=== PATIENT | female | born 1990 | race Caucasian/White ===

== ENCOUNTER → 2017-12-18 | Outpatient (CLI) | payer OTHER | LOC: COL.RAD 12-10 09:00 | DX: N30.20 Other chronic cystitis without hematuria (principal) | CPT/HCPCS: Q9967 ==

== ENCOUNTER 2020-03-25 23:21 | Emergency (ER) | payer OTHER ==
[~2020-03-25] VITALS: Ht 160 cm; Wt 62.3 kg
[2020-03-26 00:26] LABS: COLLECTION METHOD CLEAN CATCH
[2020-03-26 00:32] LABS: MUCOUS Present /lpf; PH 7 (5-8); SQUAMOUS EPITHELIAL 0-2 /hpf; URINE APPEARANCE Clear; URINE BACTERIA Rare /hpf; URINE BILIRUBIN Negative (NEGATIVE); URINE BLOOD Negative (NEGATIVE); URINE COLOR Yellow; URINE GLUCOSE Negative (NEGATIVE); URINE KETONE Negative (NEGATIVE); URINE LEUKOCYTE ESTERASE Negative (NEGATIVE); URINE NITRATE Negative (NEGATIVE); URINE PROTEIN(semi-quant) Negative (NEGATIVE); URINE RBC 0-2 /hpf; URINE UROBILINOGEN Negative (NEGATIVE)
[2020-03-26 00:37] LABS: BASO % 0.4 % (0.0-2.0); EOS # 0.3 (0.0-0.7); EOS % 3.3 % (0-4.0); GRAN # 6.9 (1.4-6.5); GRAN % 72.7 % (42.2-75.2); HEMOGLOBIN 11.9 g/dl (12.5-16.0); LYMPH # 1.5 (1.2-3.4); LYMPH % 15.5 % (20.0-51.0); MEAN CELL VOLUME 89 fl (80.0-100.0); MEAN CORPUSCULAR HEMOGLOBIN 30 pg (27.0-31.0); MEAN CORPUSCULAR HGB CONC 34 g/dl (33.0-37.0); MEAN PLATELET VOLUME 12.7 fl (7.4-10.4); MONO # 0.7 (0.1-0.6); MONO % 7.3 % (1.7-9.3); PLATELET COUNT 160 K/mm3 (130-400); RED BLOOD COUNT 3.93 M/mm3 (4.10-5.30); REDCELL DISTRIBUTION WIDTH-CV 13.2 % (11.5-14.5)
[2020-03-26 00:45] LABS: ALBUMIN 3.7 gm/dL (3.5-5.0); BILIRUBIN,TOTAL 0.5 mg/dL (0.0-1.0); CALCIUM 9.1 mg/dL (8.4-10.2); CREATININE, serum 0.57 (0.52-1.25); POTASSIUM 3.8 mmol/L (3.4-5.0); TOTAL PROTEIN 6.9 gm/dL (6.4-8.2)
[2020-03-26 02:10] VITALS: BP 112/70; PULSE 70; TEMP 98
== END 2020-03-26 02:00 | disposition home or self-care (01) ==
LOC: COL.ER 23:21
PROVIDERS: Nurse Practitioner
DX: O26.892 Other specified pregnancy related conditions, second trimester (principal); R10.9 Unspecified abdominal pain; R19.7 Diarrhea, unspecified; R11.0 Nausea; Z3A.20 20 weeks gestation of pregnancy
CPT/HCPCS: J7030

== ENCOUNTER 2020-11-09 06:57 | Outpatient (CLI) | payer OTHER ==
[2020-11-09] VITALS (8 sets, daily range): BP systolic 108–139; BP diastolic 75–89; PULSE 59–97; TEMP 98.5
[~2020-11-09] VITALS: Ht 160 cm; Wt 60.2 kg
[2020-11-09 08:13] LABS: HEMATOCRIT 37.4 % (37.0-47.0); HEMOGLOBIN 11.9 g/dl (12.5-16.0); MEAN CELL VOLUME 86 fl (80.0-100.0); MEAN CORPUSCULAR HEMOGLOBIN 27 pg (27.0-31.0); MEAN CORPUSCULAR HGB CONC 32 g/dl (33.0-37.0); MEAN PLATELET VOLUME 12.8 fl (7.4-10.4); PLATELET COUNT 198 K/mm3 (130-400); RED BLOOD COUNT 4.36 M/mm3 (4.10-5.30); REDCELL DISTRIBUTION WIDTH-CV 12.2 % (11.5-14.5)
[2020-11-09 08:14] LABS: PROTHROMBIN TIME 11.6 SECONDS (9.7-12.8)
[2020-11-09 08:17] LABS: CALCIUM 9.3 mg/dL (8.4-10.2); CREATININE, serum 0.74 (0.52-1.25); POTASSIUM 3.8 mmol/L (3.4-5.0)
[2020-11-09] MEDS ORDERED: TYLENOL 325MG325 MG PO (08:22)
[2020-11-09] MEDS ORDERED: FLONASEALLERGY NS (08:25)
[2020-11-09] MEDS ORDERED: NORMODYNE100 MG PO (08:25)
[2020-11-09] MEDS ORDERED: MACRODANTIN100 PO (08:27)
[2020-11-09] MEDS ORDERED: ZYRTEC 10MG10 MG PO (08:28)
[2020-11-09] MEDS ORDERED: PYRIDIUM 100MG100 MG PO (08:28)
[2020-11-09] MEDS ORDERED: BENTYL 20MG20 MG/TAB PO (08:28)
[2020-11-09] MEDS ORDERED: IBU800 M1 PO (08:31)
--- NOTE | 2020-11-09 09:50 | NUR ---
Report from Mara Saunders.
--- NOTE | 2020-11-09 11:35 | NUR ---
Discharge instructions given to pt.Pt verbalizes understanding.INT removed,catheter tip intact.Pt escorted out via wheelchair by this nurse.
== END 2020-11-09 12:18 | disposition home or self-care (01) ==
LOC: COL.RAD 06:57
PROVIDERS: Internal Medicine Cardiovascular Disease
DX: R94.31 Abnormal electrocardiogram [ECG] [EKG] (principal)
CPT/HCPCS: J2704; J7120

== ENCOUNTER 2021-12-15 09:00 | Day surgery (SDC) | payer OTHER ==
[~2021-12-15] VITALS: Ht 160 cm; Wt 54.5 kg
[~2021-12-15 09:00] MED LIST: BENTYL 20MG20 MG/TAB PO; FLONASEALLERGY NS; IBU800 M1 PO; MACRODANTIN100 PO; NORMODYNE100 MG PO; PYRIDIUM 100MG100 MG PO; TYLENOL 325MG325 MG PO; ZYRTEC 10MG10 MG PO
[2021-12-15 09:48] VITALS: BP 101/78; PULSE 80; TEMP 97.4
[2021-12-15] MEDS ORDERED: CLARITIN 1010 MG/TAB PO (09:58)
[2021-12-15 11:10] VITALS: BP 108/66; PULSE 75; TEMP 97.4
--- NOTE | 2021-12-15 11:22 | NUR ---
PT ARRIVED TO BAY 4, VSS. A&0. PT DENIES NAUSEA. NO NEEDS AT THIS TIME, CALL LIGHT LEFT WITHIN REACH.
[2021-12-15 11:30] VITALS: BP 108/66; PULSE 66
[2021-12-15 11:56] VITALS: BP 97/73; PULSE 65
--- NOTE | 2021-12-15 12:09 | NUR ---
PT MET DISCHARGE CRITERIA, VSS. IV REMOVED WITHOUT COMPLICATIONS, CATHETER INTACT. DISCHARGE INSTRUCTIONS REVIEWED, PT VERBALIZED UNDERSTANDING. PT DC TO HOME VIA WHEELCHAIR TO FRONT ENTRANCE.
== END 2021-12-15 12:10 | disposition home or self-care (01) ==
LOC: SDCO 09:00
DX: R10.84 Generalized abdominal pain (principal); R19.7 Diarrhea, unspecified; R14.0 Abdominal distension (gaseous); Z79.899 Other long term (current) drug therapy
CPT/HCPCS: J2704; J7120

== ENCOUNTER 2022-11-21 04:04 | Inpatient (IN) | payer OTHER ==
[2022-11-21] VITALS (41 sets, daily range): BP systolic 97–138; BP diastolic 55–76; PULSE 50–133; TEMP 98–98.6
[~2022-11-21] VITALS: Ht 160 cm; Wt 65.0 kg
[~2022-11-21 04:04] MED LIST changes: +CLARITIN 1010 MG/TAB PO
[2022-11-21 05:21] LABS: BASO # 0.1 K/mm3 (0.0-0.2); BASO % 0.5 % (0.0-2.0); EOS # 0.1 K/mm3 (0.0-0.7); EOS % 0.7 % (0.0-4.0); GRAN # 7.5 K/mm3 (1.4-6.5); GRAN % 64.1 % (42.2-75.2); HEMOGLOBIN 11.5 g/dl (12.5-16.0); LYMPH # 3.1 K/mm3 (1.2-3.4); LYMPH % 26.5 % (20.0-51.0); MEAN CELL VOLUME 82 fl (80.0-100.0); MEAN CORPUSCULAR HEMOGLOBIN 27 pg (27-31); MEAN CORPUSCULAR HGB CONC 33 g/dl (33.0-37.0); MEAN PLATELET VOLUME 13.7 fl (7.4-10.4); MONO # 0.8 K/mm3 (0.1-0.6); MONO % 7.1 % (1.7-9.3); PLATELET COUNT 219 K/mm3 (130-400); RED BLOOD COUNT 4.31 M/mm3 (4.10-5.30)
[2022-11-21 05:22] LABS: HEMATOCRIT 35.2 % (37.0-47.0)
[2022-11-21 06:00] LABS: TRICYCLIC ANTIDEPRESS URINE NEGATIVE
[2022-11-21] MEDS ORDERED: ASPIRIN 81M81 MG/TA2 PO (07:27)
[2022-11-22 00:20] VITALS: BP 110/68; PULSE 78; TEMP 98.2
[2022-11-22 04:15] VITALS: BP 149/73; PULSE 89; TEMP 97
[2022-11-22 08:10] VITALS: BP 118/69; PULSE 62; TEMP 97.6
[2022-11-22 11:59] VITALS: BP 101/70; PULSE 66; TEMP 97.5
[2022-11-22 17:06] VITALS: BP 117/69; PULSE 59; TEMP 97.6
[2022-11-22 21:20] VITALS: BP 102/56; PULSE 67; TEMP 97.9
[2022-11-23 07:30] VITALS: BP 116/70; PULSE 75
[2022-11-23] MEDS ORDERED: MOTRIN 600600 MG/TAB PO (08:41)
[2022-11-23] MEDS ORDERED: ROXICODONE 55 MG/TAB PO (08:42)
== END 2022-11-23 12:25 | disposition home or self-care (01) | DRG 786 ==
LOC: LDRO 04:04 → LDR 04:42 → OB 04:42
PROVIDERS: ADMIT Obstetrics & Gynecology
PROC: 10D00Z1 Extraction of Products of Conception, Low, Open Approach (ICD-10-PCS; principal; 2022-11-21)
PROC: 0UQ90ZZ Repair Uterus, Open Approach (ICD-10-PCS; 2022-11-21)
DX: O34.211 Maternal care for low transverse scar from previous cesarean delivery (principal); O71.1 Rupture of uterus during labor; O75.3 Other infection during labor; O99.12 Other diseases of the blood and blood-forming organs and certain disorders involving the immune mechanism complicating childbirth; Z3A.39 39 weeks gestation of pregnancy; Z37.0 Single live birth; J45.909 Unspecified asthma, uncomplicated; O99.52 Diseases of the respiratory system complicating childbirth; O76 Abnormality in fetal heart rate and rhythm complicating labor and delivery; N30.10 Interstitial cystitis (chronic) without hematuria; K58.9 Irritable bowel syndrome, unspecified; O99.62 Diseases of the digestive system complicating childbirth; D69.6 Thrombocytopenia, unspecified; O99.02 Anemia complicating childbirth; D64.9 Anemia, unspecified; Z88.1 Allergy status to other antibiotic agents
CPT/HCPCS: J0171; J0690; J1100; J1200; J1885; J2405; J2540; J2590; J7120

== ENCOUNTER → 2023-11-27 | Outpatient (CLI) | payer OTHER ==
[~2023-11-27] MED LIST changes: +AMOXICILLIN 8751 TAB PO; +ASPIRIN 81M81 MG/TA2 PO; +FLAGYL500 MG PO; +MOTRIN 600600 MG/TAB PO; +ROXICODONE 55 MG/TAB PO; +ZOFRAN ODT4 MG PO
== END ==
LOC: COL.RAD 08:43
DX: M84.475A Pathological fracture, left foot, initial encounter for fracture (principal)
CPT/HCPCS: A9503-JZ